=== PATIENT | male | born 1930 | race African-American/Black ===

== ENCOUNTER 2020-05-08 11:38 | Inpatient (IN) | payer MEDICARE, OTHER ==
[~2020-05-08] VITALS: Ht 172.7 cm; Wt 59.4 kg
[2020-05-08] VITALS (12 sets, daily range): BP systolic 120–138; BP diastolic 56–66
--- NOTE | 2020-05-08 11:40 | NUR ---
DR Jung seen and examined the pt.
[2020-05-08 12:15] LABS: BASOPHILS % (AUTO) 0.5 % (0.0-2.0); EOSINOPHILS # (AUTO) 0.3 K/uL (0.0-0.7); EOSINOPHILS % (AUTO) 3.2 % (0.0-7.0); LYMPHOCYTES # (AUTO) 0.9 K/uL (20.0-40.0); LYMPHOCYTES % (AUTO) 10.5 % (20.5-51.5); MEAN CORPUSCULAR HEMOGLOBIN 21.9 uug (23.8-33.4); MEAN CORPUSCULAR HGB CONC 31 g/dL (32.5-36.3); MEAN CORPUSCULAR VOLUME 70.3 fL (73.0-96.2); MONOCYTES % (AUTO) 11.9 % (0.0-11.0); NEUTROPHILS # (AUTO) 6.2 K/uL (1.8-8.9); NEUTROPHILS % (AUTO) 73.9 % (38.5-71.5); PLATELET COUNT (AUTO) 285 K/uL (152-348); RED BLOOD CELL COUNT(AUTO) 2.66 MIL/uL (4.06-5.63); WHITE BLOOD COUNT (AUTO) 8.4 K/uL (3.6-10.2)
--- NOTE | 2020-05-08 12:17 | NUR ---
COVID swab collected and sent to lab.
[2020-05-08 12:18] LABS: CREATININE 1.2 mg/dL (0.6-1.3); POTASSIUM 4.2 mmol/L (3.5-5.1)
[2020-05-08 12:22] LABS: BILIRUBIN,DIRECT 0.1 mg/dL (0.0-0.2); BILIRUBIN,TOTAL 0.2 mg/dL (0.2-1.0); TOTAL PROTEIN, SERUM 7.1 g/dL (6.4-8.2)
[2020-05-08 12:25] LABS: HEMATOCRIT 18.7 % (36.7-47.1); HEMOGLOBIN 5.8 g/dL (12.5-16.3)
[2020-05-08] MEDS ORDERED: ALFU10TA10 PO (12:28)
[2020-05-08] MEDS ORDERED: ACET-73 GT (12:28)
[2020-05-08] MEDS ORDERED: ASCO500C18 GT (12:28)
[2020-05-08] MEDS ORDERED: MULT-594 GT (12:28)
[2020-05-08] MEDS ORDERED: CHOL500050 (12:28)
[2020-05-08] MEDS ORDERED: POLY119P2 GT (12:28)
[2020-05-08] MEDS ORDERED: FERR325T28 GT (12:28)
[2020-05-08] MEDS ORDERED: ATOR20TA GT (12:28)
[2020-05-08] MEDS ORDERED: AMLO10TA7 GT (12:28)
[2020-05-08] MEDS ORDERED: FLUT9.9S NS (12:28)
[2020-05-08] MEDS ORDERED: NA P133E RC (12:28)
[2020-05-08] MEDS ORDERED: BISA10SU61 RC (12:28)
[2020-05-08] MEDS ORDERED: PANT40TA4 GT (12:28)
[2020-05-08] MEDS ORDERED: ZINC1CAP2 GT (12:28)
[2020-05-08] MEDS ORDERED: EPOE40007 SQ (12:28)
[2020-05-08] MEDS ORDERED: POTA10CA43 GT (12:28)
[2020-05-08] MEDS ORDERED: MIRT15TA7 GT (12:28)
[2020-05-08] MEDS ORDERED: SENN-261 GT (12:28)
[2020-05-08] MEDS ORDERED: MAGN400O6 PO (12:28)
[2020-05-08] MEDS ORDERED: ACET-2154 GT (12:28)
[2020-05-08] MEDS ORDERED: CHOL2400 GT (12:28)
[2020-05-08] MEDS ORDERED: CITA10TA9 GT (12:28)
[2020-05-08] MEDS ORDERED: LORA10TA7 GT (12:28)
[2020-05-08] MEDS ORDERED: FLEET ENEMA 133 ML BOTTLE RC PRN (12:45)
[2020-05-08] MEDS ORDERED: ONDANSETRON 4 MG/2 ML VIAL IV PRN (12:45)
[2020-05-08] MEDS ORDERED: ACETAMINOPHEN 325 MG TABLET GT SCH (12:45)
[2020-05-08] MEDS ORDERED: MAGNESIUM HYDROXIDE 30 ML LIQUID UDC GT PRN ×2 (12:45)
[2020-05-08] MEDS ORDERED: LORATADINE 10 MG TABLET GT PRN (12:45)
[2020-05-08] MEDS ORDERED: HYDROCODONE/APAP 5-325MG TABLET GT PRN (12:45)
[2020-05-08] MEDS ORDERED: ACETAMINOPHEN 325 MG TABLET GT PRN (12:45)
[2020-05-08] MEDS ORDERED: BISACODYL 10 MG SUPP.RECT RC PRN (12:45)
[2020-05-08] MEDS ORDERED: Z GUARD REMEDY PASTE 57 GM TUBE TOP PRN (12:45)
--- NOTE | 2020-05-08 12:49 | NUR ---
RAMESH RECIO and pt signed consent for blood transfusion.
--- NOTE | 2020-05-08 13:13 | NUR ---
Patient is resting comfortably in bed with eyes closed, NAD noted.
--- NOTE | 2020-05-08 14:00 | NUR ---
admitted from [facility] an 89 yo male with adm dx of Anemia WITH HGB 8.5 awake alert and verbally responsive able to make needs known. admission orders received from dr gomes. patient requires blood transfusion. routine adm assessment initiated. SR on monitor
[2020-05-08 14:47] LABS: BAND % (MANUAL) 2 % (0-10); EOSINOPHILS % (MANUAL) 5 % (0-8); LYMPHOCYTES % (MANUAL) 10 % (20-40); MONOCYTES % (MANUAL) 9 % (2-10); NEUTROPHILS % (MANUAL) 74 % (42-75)
--- NOTE | 2020-05-08 15:03 | NUR ---
PRBC VERIFIED, BLOOD TRANSFUSION STARTED CLOSELY MONITORED
[2020-05-08] MEDS ORDERED: IV D5 1/2 NS 1000 ML 1,000 ML IV SCH (15:30)
--- NOTE | 2020-05-08 15:30 | NUR ---
NO REACTION FROM BLOOD TRANSFUSION NOTED. CONTINUE WITH TX
--- NOTE | 2020-05-08 16:42 | NUR ---
DR SALDIVAR NOTIFIED REGARDING REGULAR DIET ORDER AND SAID ITS FOR NUTRITIONAL PURPOSES AND ADDED PATIENT TO BE ON NPO FOR GI CONSULT IN AM
[2020-05-08] MEDS ORDERED: PANTOPRAZOLE SODIUM 40 MG TABLET.DR PO SCH (17:00)
--- NOTE | 2020-05-08 18:08 | NUR ---
BLOOD TRANSFUSION COMPLETED WITHOUT REACTION. RECEIVED A CALL FROM RADHA IN THE LAB THAT RAPID TEST FOR COVID-19 IS NEGATIVE
[2020-05-08] MEDS: MIRTAZAPINE 15 MG TABLET GT SCH (18:26)
--- NOTE | 2020-05-08 20:30 | NUR ---
Patient in bed alert and able to make needs known, no distress noted, verified 2 unit of PRBc and administered ,IV line 20g on left hand patent and intact , no s/s of infiltration, vital signs taken and stable, patient denies s/s of discomfort at time, closely monitored.
[2020-05-08] MEDS: PANTOPRAZOLE SODIUM 40 MG VIAL IV SCH (21:21)
[2020-05-08] MEDS: SENNOSIDES 1 TABLET GT SCH (21:21)
--- NOTE | 2020-05-08 23:45 | NUR ---
Blood transfusion completed without complications, denies pain or discomfort, no s/s of distress noted. Call light with in,Safety measures in place.Will continue to monitor.
[2020-05-09] VITALS: BP 138/61
[2020-05-09 00:25] VITALS: BP 120/88
[2020-05-09] MEDS: IV D5 1/2 NS 1000 ML 1,000 ML IV PRN ×2 (00:28→12:45)
[2020-05-09 04:38] VITALS: BP 122/88
[2020-05-09 06:07] LABS: BASOPHILS # (AUTO) 0.1 K/uL (0.0-8.0); BASOPHILS % (AUTO) 0.8 % (0.0-2.0); EOSINOPHILS # (AUTO) 0.3 K/uL (0.0-0.7); EOSINOPHILS % (AUTO) 3.8 % (0.0-7.0); HEMATOCRIT 26.1 % (36.7-47.1); HEMOGLOBIN 8.6 g/dL (12.5-16.3); LYMPHOCYTES # (AUTO) 0.8 K/uL (20.0-40.0); LYMPHOCYTES % (AUTO) 9.8 % (20.5-51.5); MEAN CORPUSCULAR HEMOGLOBIN 24.6 uug (23.8-33.4); MEAN CORPUSCULAR HGB CONC 33 g/dL (32.5-36.3); MEAN CORPUSCULAR VOLUME 74.9 fL (73.0-96.2); MONOCYTES % (AUTO) 12.4 % (0.0-11.0); NEUTROPHILS # (AUTO) 6.2 K/uL (1.8-8.9); NEUTROPHILS % (AUTO) 73.2 % (38.5-71.5); PLATELET COUNT (AUTO) 300 K/uL (152-348); RED BLOOD CELL COUNT(AUTO) 3.49 MIL/uL (4.06-5.63); WHITE BLOOD COUNT (AUTO) 8.4 K/uL (3.6-10.2)
[2020-05-09 06:20] LABS: CREATININE 1.3 mg/dL (0.6-1.3); MAGNESIUM 2.3 mg/dL (1.8-2.4); PHOSPHOROUS 3.2 mg/dL (2.5-4.9); POTASSIUM 3.9 mmol/L (3.5-5.1)
--- NOTE | 2020-05-09 08:00 | NUR ---
RECEIVED PATIENT IN BED AWAKE ALERT VERBALLY RESPONSIVE SPITING UP PHLEGM INTO A CUP BEIGE COLORED NO COUGH EPISODES NOTED ASSISTED WITH ORAL CARE WILL CONTINUE TO OBSERVE PATIENT ALSO HAS A GT TUBE WHICH IS NOT IN USE AT THIS TIME CALL LIGHTS AND PERSONALBELONGINGS ARE WITHIN EASY REACH AT THIS TIME.
[2020-05-09] MEDS: PANTOPRAZOLE SODIUM 40 MG VIAL IV SCH ×2 (08:37→20:36)
[2020-05-09] MEDS: ZINC SULFATE 220 MG CAPSULE GT SCH (08:37)
[2020-05-09] MEDS: CITALOPRAM 10 MG TABLET GT SCH (08:37)
--- NOTE | 2020-05-09 09:00 | NUR ---
PATIENT SEEN AND EVALUATED BY VIGNESH SMITH AND HE STATED THAT HE HAS SENT A MESSAGE FOR DR DOMINICK SCHAFFER TO COME AND EVALUATE PATIENT
--- NOTE | 2020-05-09 09:15 | NUR ---
NOTED EMESIS ABOUT 75 ML OF MUCUS MIXED WITH PINK COLOR STATED THAT HE VOMITED THIS MEDICATED WITH ZOFRAN ORDERED MADE COMFORTABLE WILL CONTINUE TO OBSERVE.
--- NOTE | 2020-05-09 11:55 | NUR ---
CALL RECEIVED FROM DR DOMINICK SCHAFFER STATED WILL SEE PATIENT LATER TODAY
[2020-05-09 12:26] VITALS: BP 132/63
--- NOTE | 2020-05-09 15:55 | NUR ---
RESTING IN BED CHECKED GASTRIC RESIDUAL LESS THAN 3 ML CLEAR LIQUID TURNED AND REPOSITIONED REMAIN NPO ON IVF ORDERED WITH NO S/S OF INFILTERATION ON SITE CONTINUES TO SPIT UP SLIMY THIN MUCUS IN THE CUP NO COUGH EPISODES NO FUTHER EMESIS WILL CONTINUE TO OBSERVE.
[2020-05-09 16:11] VITALS: BP 134/69
[2020-05-09] MEDS: MIRTAZAPINE 15 MG TABLET GT SCH (17:09)
--- NOTE | 2020-05-09 18:00 | NUR ---
REMAIN ON IVF ORDERED WITH NO S/S OF INFILTERATION ON SITE GT PATENT WITH NO GASTRIC RESIDUAL AT THIS TIME NO C/O NAUSEA OR VOMITING AT THIS TIME ORAL CARE REINALDO WELL
[2020-05-09] MEDS: SENNOSIDES 1 TABLET GT SCH (20:36)
[2020-05-09 20:56] VITALS: BP 131/70
[2020-05-10 00:18] VITALS: BP 134/68
[2020-05-10] MEDS: IV D5 1/2 NS 1000 ML 1,000 ML IV PRN (02:05)
[2020-05-10 04:00] VITALS: BP 122/74
--- NOTE | 2020-05-10 06:30 | NUR ---
Patient had a copious amount of dark liquid stool. Collected and sent to the lab for OB testing.
[2020-05-10 07:10] LABS: *OCCULT BLOOD STOOL POSITIVE (NEGATIVE)
[2020-05-10] MEDS: ZINC SULFATE 220 MG CAPSULE GT SCH (08:10)
[2020-05-10] MEDS: CITALOPRAM 10 MG TABLET GT SCH (08:10)
[2020-05-10] MEDS: PANTOPRAZOLE SODIUM 40 MG VIAL IV SCH (08:28)
[2020-05-10 10:02] LABS: BASOPHILS # (AUTO) 0.1 K/uL (0.0-8.0); BASOPHILS % (AUTO) 0.8 % (0.0-2.0); EOSINOPHILS # (AUTO) 0.3 K/uL (0.0-0.7); EOSINOPHILS % (AUTO) 3.9 % (0.0-7.0); HEMATOCRIT 27.2 % (36.7-47.1); LYMPHOCYTES # (AUTO) 0.8 K/uL (20.0-40.0); MEAN CORPUSCULAR HEMOGLOBIN 24.7 uug (23.8-33.4); MEAN CORPUSCULAR HGB CONC 33 g/dL (32.5-36.3); MONOCYTES # (AUTO) 0.8 K/uL (2.0-10.0); NEUTROPHILS # (AUTO) 6.4 K/uL (1.8-8.9); NEUTROPHILS % (AUTO) 76.3 % (38.5-71.5); PLATELET COUNT (AUTO) 314 K/uL (152-348); RED BLOOD CELL COUNT(AUTO) 3.63 MIL/uL (4.06-5.63); WHITE BLOOD COUNT (AUTO) 8.4 K/uL (3.6-10.2)
[2020-05-10 11:51] VITALS: BP 126/70
--- NOTE | 2020-05-10 15:30 | NUR ---
dc orders received noted and carried out,dc heplock per md orders, dc instruction given to the pt .pt left the facility with ambulances in stable condition
== END 2020-05-10 15:40 | DRG 380 ==
LOC: ER 11:38 → TELE3 13:35
PROVIDERS: ADMIT Internal Medicine; ATTEND Internal Medicine
PROC: 30233N1 Transfusion of Nonautologous Red Blood Cells into Peripheral Vein, Percutaneous Approach (ICD-10-PCS; principal; 2020-05-08)
DX: K22.11 Ulcer of esophagus with bleeding (principal); N17.0 Acute kidney failure with tubular necrosis; G93.41 Metabolic encephalopathy; E87.0 Hyperosmolality and hypernatremia; E46 Unspecified protein-calorie malnutrition; Z68.1 Body mass index [BMI] 19.9 or less, adult; E86.1 Hypovolemia; Z86.73 Personal history of transient ischemic attack (TIA), and cerebral infarction without residual deficits; J44.9 Chronic obstructive pulmonary disease, unspecified; N40.0 Benign prostatic hyperplasia without lower urinary tract symptoms; R13.10 Dysphagia, unspecified; Z93.1 Gastrostomy status; Z85.118 Personal history of other malignant neoplasm of bronchus and lung; F32.9 Major depressive disorder, single episode, unspecified; E78.5 Hyperlipidemia, unspecified; F03.90 Unspecified dementia, unspecified severity, without behavioral disturbance, psychotic disturbance, mood disturbance, and anxiety; K21.9 Gastro-esophageal reflux disease without esophagitis; I12.9 Hypertensive chronic kidney disease with stage 1 through stage 4 chronic kidney disease, or unspecified chronic kidney disease; N18.9 Chronic kidney disease, unspecified; D63.1 Anemia in chronic kidney disease; Z85.89 Personal history of malignant neoplasm of other organs and systems
CPT/HCPCS: 36415; 70030-TC; 71045; 83735; 84100; 85025; 85730; 86850; 86900; 86901; 86920; 93005; A4663; C9113; G0378; J2405; J3490; J7040; J7050; P9016-BL; P9021